=== PATIENT | female | born 1950 | race Caucasian/White ===

== ENCOUNTER 2018-09-30 08:53 | Day surgery (SDC) | payer MEDICARE ==
--- NOTE | 2018-09-30 06:49 | History and Physical - [place] ---
CHIEF COMPLAINT/HISTORY OF CHIEF COMPLAINT: This patient presents with a history of an intractable lumbar radiculopathy. Due to the failure of therapy including a spinal infusion system device a spinal cord stimulator trial was conducted on 08/25/18 with 75+% pain control. Due to the failure of other therapies and the success of the trial, she is here for a permanent implantation of a system. PAST MEDICAL HISTORY: Hypertension. PAST SURGICAL HISTORY: Appendectomy, tubal ligation, breast surgery, and pump implant. MEDICATIONS ON ADMISSION: List to be provided. ALLERGIES: VICODIN, TYLENOL AND NUBAIN. FAMILY/PSYCHOSOCIAL HISTORY: Social history - Smoking and caffeine. Family history - Diabetes, coronary artery disease, hypertension, and cancer. SYSTEMS REVIEW: The patient is appropriate in no acute distress. The remainder of the systems review is positive for glasses, dentures, sleep disturbance, coronary artery disease, peripheral edema, reflux, degenerative arthritis, depression, and difficulty sleeping. PHYSICAL EXAMINATION: Height is 5'8", weight is 270. No vital signs. HEENT: Within normal limits. LUNGS: Clear. HEART: Rapid and regular. ABDOMEN: Nontender. MUSCULOSKELETAL: Examination of the musculoskeletal system shows diffuse tenderness throughout the lumbar spine. Range of motion does produce pain into the low back extending all the way into the leg across the front and back surface. Ambulation - No assistive device utilized. Motor and sensory field evaluation shows pain, weakness and sensory loss across the left leg front and back surface. NEUROLOGIC: Cranial nerves are intact. IMPRESSION: LUMBAR RADICULOPATHY, ICD-10 CODE M54.16 AND M54.17. PLAN: Due to the failure of other therapies, the patient is here for implantation of a spinal cord stimulator after a successful trial. The procedure will be considered outpatient, but an overnight stay will be evaluated. The potential risks, side effects, and complications have all been carefully reviewed and discussed. JOB NUMBER: [id number] MTDD
[~2018-09-30 08:53] MED LIST: ACETAMINOPHEN 1,000 MG/100 ML BTL IV ONE; CEFAZOLIN 2 Gram 2 GM/50 ML BAG IVPB ONE; FAMOTIDINE 20MG TABLET PO ONE; MECLIZINE 25 MG TABLET PO ONE; METOCLOPRAMIDE 10 MG TABLET PO ONE
[2018-09-30] MEDS ORDERED: KETAMINE HCL 100MG/1ML VIAL INJ ONE (08:54)
[2018-09-30] MEDS ORDERED: BUPIVACAINE 0.5% W/EPI MPF 30 ML VIAL IVP ONE (08:54)
[2018-09-30] MEDS ORDERED: MIDAZOLAM HCL 2MG/2ML VIAL IV ONE (08:54)
[2018-09-30] MEDS ORDERED: OXYCODONE/APAP 10MG-325MG TABLET PO ONE (08:54)
[2018-09-30] MEDS ORDERED: PROPOFOL 10 MG/ML VIAL IV ONE (08:54)
[2018-09-30] MEDS ORDERED: LIDOCAINE 1% W/EPI 1:200,000 MPF 30ML SQ ONE (08:54)
[2018-09-30] MEDS ORDERED: FENTANYL PF 100MCG/2ML VIAL IV ONE (08:54)
[2018-09-30] MEDS ORDERED: 0.9 % SODIUM CHLORIDE 10 ML VIAL IVP ONE (08:54)
[2018-09-30] MEDS ORDERED: CEFAZOLIN 1G VIAL IM ONE (08:54)
[2018-09-30] MEDS ORDERED: LIDOCAINE 2% MDV (20MG/ML) 20ML VIAL IV ONE (08:54)
--- NOTE | 2018-10-01 16:37 | Operative Note ---
DATE OF SURGERY: 09/30/18 PREOPERATIVE DIAGNOSIS: INTRACTABLE LUMBAR RADICULOPATHY, ICD-10 CODE = M54.16 AND M54.17. OPERATION: 1. FLUOROSCOPICALLY-GUIDED EPIDURAL ACCESS LEFT T12/L1. PLACEMENT OF SPINAL CORD STIMULATOR LEAD 1, A [employer] INFINION 16 WITH 6 ELECTRODES POSITIONED LEFT T7. 2. FLUOROSCOPICALLY-GUIDED EPIDURAL ACCESS LEFT T11/12. PLACEMENT OF SPINAL CORD STIMULATOR LEAD 2, A [employer] INFINION 16 WITH 6 ELECTRODES POSITIONED MIDLINE, T7. 3. COMPLEX PROGRAMMING OF LEAD 1 OVER 20 MINUTES FOLLOWED BY COMPLEX PROGRAMMING OF LEAD 2 OVER 20 MINUTES. 4. INCISION, SUBCUTANEOUS DISSECTION, AND ANCHORING LEAD 1 AND LEAD 2 TO SUPRASPINOUS FASCIA WITH A [employer] LOCKING ANCHOR AND NONABSORBABLE SUTURE. 5. INCISION, SUBCUTANEOUS DISSECTION, AND CREATION OF A SUBCUTANEOUS POUCH AT LEFT POSTERIOR GLUTEAL MARGIN FOR PLACEMENT OF GENERATOR IDENTIFIED A [employer]ENT[employer] PROGRAMMABLE RECHARGEABLE WAVEWRITER. 6. TUNNELING BETWEEN POUCHES, PLACEMENT OF EXTERNAL PORTION OF LEAD 1 AND LEAD 2 INTO GENERATOR POUCH, EACH LEAD INTERFACED TO GENERATOR. 7. PLACEMENT OF GENERATOR POUCH, PLACEMENT OF LEADS INTO POUCH. CLOSURE OF BOTH INCISIONS STRATAFIX SUTURE 2-0 FASCIA, 3-0 SKIN. DERMABOND CLOSURE. 8. COMPLEX RECOVERY ROOM PROGRAMMING INTERNAL GENERATOR HOME USE, TWO STIMULATORS, RECOVERY ROOM 20 MINUTES. SURGEON: EAGLE ROJAS D.O. ANESTHESIA: LOCAL SEDATION. ANESTHESIA PROVIDER: KATHRYN Chaves. INDICATION: This patient presents with a history of intractable post lumbar radiculopathy, some more left than right. Due to the failure of all therapies, a spinal cord stimulator trial was conducted with 75 plus percent pain control. Due to the failure of all therapies and the success of the trial, patient presents today for implantation of a permanent system. PROCEDURE: Intravenous line, vital sign monitoring, IV sedation, prepped and draped in sterile technique. Patient position prone. Sterile prep, sterile technique. From the left, the epidural interspace at 06/29 and 07/18 were both marked, infiltrated. Using two separate curved access Epimed needles with loss- of-resistance, the space was accessed atraumatically. No CSF. No blood. At 07/18 , spinal cord stimulator lead 1, a [employer] Infinion 16 with 6 electrodes was advanced into the space positioned left of midline T7. With the epidural access at 11/12, same technique, a spinal cord stimulator lead 2, a [employer] Infinion 16 with 6 electrodes was positioned at the anatomic midline upper electrode T7. Complex programming of lead 1 over 20 minutes followed by complex programming of lead 2 over 20 minutes resulting in complete patterns of stimulation across the back and into the legs; patient indicating we had all of the areas of the pain. The questions were repeated with the same response. The questions were implant the system or continue to program; she opted to implant the system. After the skin was infiltrated, incision made, and subcutaneous dissection was conducted to the supraspinous fascia, each of the leads was then anchored to the supraspinous fascia once the needles have been removed with an anchoring device and nonabsorbable suture. At the left posterior gluteal margin, which was the site picked by the patient for the generator, skin was infiltrated, an incision made, and subcutaneous dissection was conducted to form a pouch of suitable size and depth for the generator, a [employer] Programmable Rechargeable. A tunneling tool was used to carry the leads into the generator pouch and then each lead was interfaced to the generator. Antibiotic irrigation. Bovie for hemostasis. The leads were then placed into their pouch, the generator was then placed to its own pouch, and both incisions were closed using STRATAFIX suture 2-0 fascia and 3-0 skin. A Dermabond closure system was then used to approximate the edges of both wounds. She was transported to the Recovery Room stable. No side-effects from the procedure or the sedation. When fully awake and alert, complex programming of the generator performed over 20 minutes in the Recovery Room re-establishing stimulation and pain control to all of the appropriate areas. The patient was instructed on the use of the system, provided with information and error messaging, and then prepared for discharge. DISCHARGE INSTRUCTIONS: 1. Sites remain clean and dry although the Dermabond will allow showering, she should not sit in water. 2. Standard medications resumed including Levaquin, the antibiotic, 500 mg once a day for 14 days. 3. The office will contact the patient in 12-24 hours to set up a time in the next 7-10 days to evaluate the sites. Until then, she is to keep her activities low. Limit bend, lift, push, pull. All other instructions provided, numbers to contact with problems given, she was then prepared for discharge. cc: Jessenia Lima M.D. JOB NUMBER: [id number] MTDD
--- NOTE | 2018-10-02 09:28 | RADIOLOGY REPORT ---
DATE: 09/30/2018. EXAM: SPINE RADIOGRAPH. HISTORY: Postoperative spinal cord stimulator implant. TECHNIQUE: Limited frontal radiograph of the thoracolumbar spine. COMPARISON: Spine radiograph dated 08/07/2011. FINDINGS: Interval placement of a spinal stimulator device with a generator pack partially seen superimposing the left lower abdomen and leads overlying the T7 through T9 vertebral levels. The right lower abdominal pump device is partially seen with catheter tip most likely near the T9-10 region. For additional details, please refer to the procedure report. Degenerative changes of the lumbar spine are noted. IMPRESSION: ABOVE. JOB NUMBER: [id number] MTDD
== END 2018-09-30 12:45 | disposition home or self-care (01) ==
LOC: SUR 08:53
PROVIDERS: ATTEND Pain Medicine Interventional Pain Medicine
DX: M54.16 Radiculopathy, lumbar region (principal); M54.17 Radiculopathy, lumbosacral region; E78.00 Pure hypercholesterolemia, unspecified; E03.9 Hypothyroidism, unspecified; K21.9 Gastro-esophageal reflux disease without esophagitis; J44.9 Chronic obstructive pulmonary disease, unspecified; I50.9 Heart failure, unspecified; Z95.5 Presence of coronary angioplasty implant and graft
CPT/HCPCS: 63650; 63685; 01936; 95972; 72020; J3010; J0690; J3490; C1820; C1883